=== PATIENT | female | born 1960 | race Caucasian/White ===

== ENCOUNTER → 2021-01-20 | Outpatient (CLI) | payer OTHER ==
--- NOTE | 2021-01-25 12:33 | RAD ---
Bilateral digital screening 2-D and 3-D (digital breast tomosynthesis) mammogram: Reason for examination: Routine screening. Comparison: None available. Interpretation was made with the benefit of CAD. FINDINGS: Breast density: Category B. There are scattered areas of fibroglandular density. No suspicious breast mass, malignant appearing calcifications, or architectural distortion is seen. IMPRESSION: No evidence of malignancy. Assessment: BI-RADS 1. Negative. Recommendation: Routine screening mammograms. The patient will receive a letter with the results in the mail. Patient information will be entered i nto the mammography reminder system with a target recall date for the next mammogram. A reminder radha er will be generated. Electronically signed by: Gela Renee MD (01/25/2021 12:30 PM) [id number]
== END ==
LOC: MAMMO 12:59
PROVIDERS: ATTEND Family Medicine
DX: Z12.31 Encounter for screening mammogram for malignant neoplasm of breast (principal)
CPT/HCPCS: 77063; 77067

== ENCOUNTER → 2021-03-07 | Outpatient (CLI) | payer OTHER ==
--- NOTE | 2021-03-08 08:30 | RAD ---
MR#: [id number] Date of Study: 03/07/2021 Ordering Physician: LUKE MENA, Referring Physician: BLAS RAMOS Tech: RT Elliot (R) (N) APPROVED REPORT Test Type: Exercise Stress Nurse/Tech: Pati Londono R.N. Test Indications: chest pain Cardiac History: smoker Medications: see ehr Medical History: see ehr Resting ECG: sr Resting Heart Rate: 78 bpm Resting Blood Pressure: 157/82mmHg Pretest Chest Pain: No chest pain Nurse/Tech Notes lungs cta, heart tones regular Consent: The procedure was explained to the patient in lay terms. Informed consent was witnessed. Johnny eout was entered into [email or web address]. History and Stress Test performed by RT Bernie (R) (N) Stress Symptoms No chest pain or symptoms. POST EXERCISE Reason for Termination: Reached target heart rate Target HR: Yes Max HR: 138 bpm 86% of Maximum Predicted HR: 160 bpm Exercise duration: 7:50 min:sec, 3 Stage Exercise capacity: 10.0METs Max Blood Pressure: 178/90mmHg Blood Pressure response to exercise: Normal blood pressure response during stress. Heart Rate response to exercise: normal Chest Pain: No. Arrhythmia: Yes. ST Change: No. INTERPRETATION Stress EKG Conclusion: No evidence of stress induced EKG changes. Imaging Protocol IMAGE PROTOCOL: Rest Tc-99m/stress Tc-99m 1 day Rest: Stress: Viability: Radiopharm.Tc99m [id number] Sestamibi Dose10.2mCi 30.4mCi Duration 15min. 15min. Img Date 03/07/2021 03/07/2021 Inj-Img Wskq03mrs. 60min. Rest Admin Site:IV - Right AntecubitalAdministrator:LI Smith, ARRT (R)(N) Stress Admin Site: IV - Right AntecubitalAdministrator: RT Kera GibbsR)(N) STRESS DATA End Diast. Vol.38.0mlLVEDV index BSA27.0ml End Syst. Vol.1.0mlLVESV index BSA1.0ml Myocardial Mass83.0gEject. Wvsmoryc00.0% Stress Scores Regional WT0.00Summed WT0.00 Regional WM0.00Summed WM0.00 The rest and stress images show normal perfusion, normal contraction and thickening. LV Perf. Quant 17 Seg. SSS0.00 17 Seg. SRS0.00 17 Seg. SDS0.00 Stress Defect Extent (% LAD)0.00Rest Defect Extent (% LAD)0.00Rev. Defect Extent (% LAD)0.00 Stress Defect Extent (% LCX) 0.00Rest Defect Extent (% LCX)0.00Rev. Defect Extent (% LCX)0.00 Stress Defect Extent (% RCA)0.00Rest Defect Extent (% RCA)0.00Rev. Defect Extent (% RCA)0.00 Stress Defect Extent (% MARTÍN)0.00Rest Defect Extent (% MARTÍN)0.00Rev. Defect Extent (% MARTÍN)0.00 Other Information Quality:Average Risk Assessment: Low Risk Conclusion 1. No evidence of EKG changes with stress testing. 2. Normal perfusion at stress/rest. 3. Low risk study. 4. EF > 60%. Signed by : Samuel Edgar, Electronically Approved : 03/08/2021 08:30:21
== END ==
LOC: NM 07:50
PROVIDERS: ATTEND Internal Medicine Cardiovascular Disease
DX: R07.9 Chest pain, unspecified (principal)
CPT/HCPCS: 78452; 93017; A9500